=== PATIENT | female | born 1990 | race Caucasian/White ===

== ENCOUNTER 2021-04-29 17:04 | Inpatient (IN) | payer MEDICAID ==
[~2021-04-29] VITALS: Ht 304.8 cm; Wt 64.9 kg
[2021-04-29] MEDS ORDERED: ACETAMINOPHEN 325MG TABLET PO ONE (18:30)
[2021-04-29 18:43] LABS: CLARITY URINE CLEAR (CLEAR); COLOR URINE YELLOW (YELLOW); KETONES URINE NEGATIVE (NEGATIVE); LEUKOCYTE ESTERASE URINE NEGATIVE (NEGATIVE); NITRITE URINE NEGATIVE (NEGATIVE); OCCULT BLOOD URINE 3+ (NEGATIVE); PH URINE 7.5 (4.5-8.0); PROTEIN URINE NEGATIVE (NEGATIVE); SPECIFIC GRAVITY URINE 1.008 (1.005-1.030)
[2021-04-29 19:06] LABS: BASOPHILS % 0.3 % (0.0-2.0); EOSINOPHILS % 2.1 % (0.0-5.0); HEMATOCRIT. 33.8 % (36.0-48.0); HEMOGLOBIN. 11.3 g/dL (12.0-16.0); LYMPHOCYTES % 23.6 % (20.0-50.0); MEAN CORPUSCULAR VOLUME 92.5 fL (81.0-99.0); MEAN PLATELET VOLUME 9.1 fl (7.4-10.4); MONOCYTES % 7.1 % (2.0-8.0); NEUTROPHILS % 66.9 % (40.0-76.0); PLATELET 283 x1000/uL (130-400); RED BLOOD CELL COUNT 3.65 mill/uL (4.2-5.4); RED CELL DISTRIBUTION WIDTH 13.1 % (11.6-14.6)
[2021-04-29 19:11] LABS: CHLORIDE 107 mEq/L (98-107)
[2021-04-29 19:34] LABS: B-HCG QUANTITATIVE 1392 mIU/mL (<3)
[2021-04-29] MEDS ORDERED: MORPHINE SULFATE 4 MG/ML CPJ (NOT FOR IM USE) IV STA (20:10)
[2021-04-29] MEDS ORDERED: ONDANSETRON HCL 4MG/2ML INJ IV STA (20:10)
[2021-04-29] MEDS ORDERED: SODIUM CHLORIDE 0.9% 1,000 ML IV ONE ×2 (20:15→21:45)
[2021-04-29] MEDS ORDERED: RHO(D) IMMUNE GLOBULIN 300 MCG/SYR IM ONE (20:45)
[2021-04-29] MEDS ORDERED: HYDROMORPHONE HCL/PF 2MG/ML CPJ IV PRN (21:30)
[2021-04-29] MEDS ORDERED: MEPERIDINE HCL/PF 25MG/ML CPJ IV PRN ×2 (21:30)
[2021-04-29] MEDS ORDERED: ONDANSETRON HCL 4MG/2ML INJ IV PRN (21:30)
[2021-04-29] MEDS ORDERED: MORPHINE SULFATE 2 MG/ML CPJ (NOT FOR IM USE) IV PRN (21:30)
[2021-04-29] MEDS ORDERED: ROCURONIUM BROMIDE 10MG/ML VIAL 5ML IV ONE (21:42)
[2021-04-29] MEDS ORDERED: NEOSTIGMINE METHYLSULFATE 1MG/ML 10 ML VIAL ONE (21:42)
[2021-04-29] MEDS ORDERED: MIDAZOLAM HCL 2 MG/2 ML VIAL ONE (21:42)
[2021-04-29] MEDS ORDERED: PHENYLEPHRINE HCL 10 MG/ML 1ML (IV VIAL) IV ONE (21:42)
[2021-04-29] MEDS ORDERED: FENTANYL CITRATE/PF 50MCG/ML 2ML VIAL ONE ×2 (21:42→21:44)
[2021-04-29] MEDS ORDERED: CEFAZOLIN SODIUM 1000MG/VIAL ONE (21:42)
[2021-04-29] MEDS ORDERED: METOCLOPRAMIDE HCL 10MG/2ML VIAL ONE (21:42)
[2021-04-29] MEDS ORDERED: SUCCINYLCHOLINE CHLORIDE 200MG/10ML IV ONE (21:42)
[2021-04-29] MEDS ORDERED: PROPOFOL 200MG/20ML VIAL IV ONE (21:42)
[2021-04-29] MEDS ORDERED: SODIUM CHLORIDE 0.9% 10ML VIAL ONE (21:42)
[2021-04-29] MEDS ORDERED: GLYCOPYRROLATE 0.2 MG/ML 2ML VIAL ONE (21:42)
[2021-04-29 23:20] LABS: *AMPHETAMINES SCREEN URINE NEGATIVE (NEGATIVE); *BARBITURATES SCREEN URINE NEGATIVE (NEGATIVE); *BENZODIAZEPINES SCREEN URINE NEGATIVE (NEGATIVE); METHADONE URINE SCREEN NEGATIVE (NEGATIVE)
[2021-04-29 23:21] LABS: *COCAINE SCREEN URINE PRESUMTIVE POSITIVE (NEGATIVE); CANNABINOID URINE SCREEN NEGATIVE (NEGATIVE); OPIATES URINE SCREEN PRESUMTIVE POSITIVE (NEGATIVE); PHENCYCLIDINE URINE SCREEN NEGATIVE (NEGATIVE)
[2021-04-30] MEDS ORDERED: BISACODYL 10MG SUPP PR PRN
[2021-04-30] MEDS ORDERED: RHO(D) IMMUNE GLOBULIN 300 MCG/SYR IM PRN
[2021-04-30] MEDS ORDERED: HYDROCODONE/ACETAMINOPHEN 5/325MG TABLET PO PRN
[2021-04-30] MEDS ORDERED: ONDANSETRON HCL 4MG/2ML INJ IV PRN
[2021-04-30] MEDS ORDERED: DIPHENHYDRAMINE 25MG CAPSULE PO PRN
[2021-04-30] MEDS ORDERED: IBUPROFEN 400MG TABLET PO PRN
[2021-04-30] MEDS ORDERED: NALOXONE HCL 0.4MG/ML VIAL IV PRN (00:15)
[2021-04-30 00:20] VITALS: BP 94/50
[2021-04-30] MEDS ORDERED: KETOROLAC 60MG/2ML VIAL IM NR (01:00)
[2021-04-30] MEDS ORDERED: KETOROLAC 30MG/ML VIAL IM NR (01:05)
[2021-04-30] MEDS: DEXT 5%/LACTATED RINGERS 1,000 ML IV SCH ×3 (03:07→17:41)
[2021-04-30] MEDS: IBUPROFEN 800MG TABLET PO PRN ×2 (03:36→21:05)
[2021-04-30 04:00] VITALS: BP 98/50
[2021-04-30 06:35] LABS: BASOPHILS % 0.2 % (0.0-2.0); EOSINOPHILS % 1.2 % (0.0-5.0); HEMOGLOBIN. 8.9 g/dL (12.0-16.0); LYMPHOCYTES % 17.4 % (20.0-50.0); MEAN CORPUSCULAR HEMOGLOBIN 31.7 pg (28.0-32.0); MEAN CORPUSCULAR VOLUME 92.4 fL (81.0-99.0); MEAN PLATELET VOLUME 9.2 fl (7.4-10.4); MONOCYTES % 6.5 % (2.0-8.0); NEUTROPHILS % 74.7 % (40.0-76.0); PLATELET 208 x1000/uL (130-400); RED BLOOD CELL COUNT 2.81 mill/uL (4.2-5.4); RED CELL DISTRIBUTION WIDTH 12.8 % (11.6-14.6)
[2021-04-30 08:00] VITALS: BP 90/51
[2021-04-30] MEDS ORDERED: SIMETHICONE 80MG TABLET CHEW PO SCH (08:20)
[2021-04-30] MEDS: PRENATAL VIT/FE FUMARATE/FA TABLET PO SCH (09:33)
[2021-04-30 12:00] VITALS: BP 91/50
[2021-04-30 16:00] VITALS: BP 97/52
[2021-04-30] MEDS: SIMETHICONE 80MG TABLET CHEW PO SCH ×2 (17:41→21:00)
[2021-04-30 20:00] VITALS: BP_SYST 102; BP_DIAS 57; BP_DIAS 61
[2021-04-30] MEDS ORDERED: DOCUSATE SODIUM 100MG CAPSULE PO SCH (21:00)
[2021-05-01] VITALS: BP 117/55
[2021-05-01] MEDS: DEXT 5%/LACTATED RINGERS 1,000 ML IV SCH (01:18)
[2021-05-01 04:00] VITALS: BP 109/57
[2021-05-01 08:00] VITALS: BP 109/63
[2021-05-01] MEDS ORDERED: IBUP-2030 MT (08:16)
[2021-05-01 08:21] VITALS: BP 109/63
[2021-05-01] MEDS: PRENATAL VIT/FE FUMARATE/FA TABLET PO SCH (10:11)
[2021-05-01] MEDS: SIMETHICONE 80MG TABLET CHEW PO SCH (10:12)
== END 2021-05-01 11:03 | disposition home or self-care (01) | DRG 547 ==
LOC: ER 17:04 → 6EST 20:25 → ENRESERV 21:30
PROVIDERS: ADMIT Specialist; ATTEND Specialist
PROC: 10T20ZZ Resection of Products of Conception, Ectopic, Open Approach (ICD-10-PCS; principal; 2021-04-29)
PROC: 0UT50ZZ Resection of Right Fallopian Tube, Open Approach (ICD-10-PCS; 2021-04-29)
PROC: 30233N1 Transfusion of Nonautologous Red Blood Cells into Peripheral Vein, Percutaneous Approach (ICD-10-PCS; 2021-04-29)
DX: O00.90 Unspecified ectopic pregnancy without intrauterine pregnancy (principal); O99.321 Drug use complicating pregnancy, first trimester; F11.10 Opioid abuse, uncomplicated; F14.10 Cocaine abuse, uncomplicated; O99.011 Anemia complicating pregnancy, first trimester; O99.311 Alcohol use complicating pregnancy, first trimester; Z20.822 Contact with and (suspected) exposure to COVID-19; O26.891 Other specified pregnancy related conditions, first trimester; Z72.89 Other problems related to lifestyle; Z67.31 Type AB blood, Rh negative; Z80.8 Family history of malignant neoplasm of other organs or systems; Z98.82 Breast implant status
CPT/HCPCS: 36415; 76801; 80053; 80305; 81003; 84702; 85025; 86850; 86900; 86920; 87426; 88302; 90384; 99285; J0330; J0690; J1885; J2175; J2250; J2270; J2370; J2405; J2704; J2710; J2765; J3010; J3490; J7030; J7042; Q0163